=== PATIENT | female | born 1990 | race Caucasian/White ===

== ENCOUNTER 2017-05-27 08:43 | Emergency (ER) | payer BC ==
[~2017-05-27] VITALS: Ht 172.7 cm; Wt 83.2 kg
[2017-05-27 08:49] VITALS: TEMP 36.8; Ht 172.7 cm; Wt 83.2 kg
[2017-05-27] MEDS ORDERED: SODIUM CHLORIDE 0.9% 1000ML 1,000 ML IV ONE (09:03)
[2017-05-27] MEDS ORDERED: ONDANSETRON INJ 2 MG/ML 2 ML VIAL IV STA ×2 (09:03→10:32)
[2017-05-27] MEDS ORDERED: SODIUM CHLORIDE 0.9% 1000ML 1,000 ML IV STA (09:03)
[2017-05-27] MEDS ORDERED: CABE0.5T PO (09:17)
[2017-05-27] MEDS ORDERED: LEVOTHYROXINE PO (09:17)
[2017-05-27 09:23] LABS: BASO % 0.2 %; BASO ABS # 0.02 K/uL (0-0.2); COMPLETE YES; EOS % 1.1 %; HEMATOCRIT 43.5 % (37-47); IG% 0.4 %; LYMPH % 29.7 %; LYMPH ABS # 2.48 K/uL (1.2-3.4); MEAN CELL VOLUME 94.8 fL (80-100); MEAN CORPUSCULAR HEMOGLOBIN 31.8 pg (25-34); MEAN CORPUSCULAR HGB CONC 33.6 g/dl (32-36); MEAN PLATELET VOLUME 9.6 fL (7.4-10.4); MONO % 10.3 %; NEUT % 58.3 %; PLATELET COUNT 266 K/uL (130-400); RED BLOOD COUNT 4.59 M/uL (4.2-5.4); WHITE BLOOD COUNT 8.35 K/uL (4.8-10.8)
[2017-05-27 09:25] LABS: URINE APPEARANCE CLEAR (CLEAR); URINE BILIRUBIN NEG (NEG); URINE COLOR YELLOW; URINE EPITHELIAL CELL AUTO >30 /lpf (0-5); URINE NITRITE NEG (NEG); URINE SPECIFIC GRAVITY 1.028 (1.000-1.030); UROBILINOGEN NEG (NEG)
--- NOTE | 2017-05-27 09:25 | EMERGENCY ROOM VISIT NOTE ---
History Report prepared by [place]: Kavitha Harris Under the Supervision of: Dr. Mac Vogt M.D. First contact with patient: 08:53 Chief Complaint: NAUSEA Stated Complaint: NAUSEA, WEAKNESS, VOMITING, DIZZY, COLD Nursing Triage Summary: pt reports I am traveling from [place] to [place] and started feeling nauseated , with Vomitting and diarrhea starting 1 day ago, with abdominal pain History of Present Illness The patient is a 26 year old female who presents to the Emergency Room with complaints of constant nausea for the past two day. The patient is driving from [place] to [place] for work. She states that while she was driving two days ago she developed nausea with intermittent vomiting. She forced herself to eat one meal yesterday, but states that otherwise she has not been eating. She has been trying to drink water to stay hydrated, but states that she has been unable to keep much down. The patient reports some upper abdominal pain that she thinks is secondary to vomiting. She rates her pain as a 5/10 in severity. She is also feeling weak and dizzy. The patient states that she is having a hard time walking because she is just generally weak all over. She has been having hot and cold flashes and diarrhea as well. The patient denies fever, headache, urinary symptoms, abnormal vaginal bleeding or discharge, and any recent trauma. Her periods have been irregular and she is unsure if she could be or not. She states that she has done martial arts competitions in the past where she has felt similar symptoms before the each competition but states that her symptoms have never been this severe before. Source of History: patient Onset: 2 days ago Position: other (global) Symptom Intensity: 5/10 Quality: other (nausea) Timing: constant Modifying Factors (Worsening): eating, drinking Associated Symptoms: + vomiting, + abdominal pain, + diarrhea, + weakness, No fevers, No headache, No urinary symptoms Note: Pt notes dizziness and hot/cold flashes. Denies abnormal vaginal bleeding or discharge and recent trauma. Review of Systems See HPI for pertinent positives & negatives. A total of 10 systems reviewed and were otherwise negative. 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 Nurse's notes were reviewed and I agree with. Family History FHx: cancer Kidney disease Kidney stones Social History Smoking Status: Never Smoker Smokeless Tobacco Use: No Alcohol Use: occasionally Housing Status: lives alone Occupation Status: employed Current/Historical Medications Scheduled Cabergoline (Cabergoline), 1 MG PO DAILY [Levothyroxine], 1 TAB PO 2XWK Scheduled PRN Lorazepam (Ativan), 1 MG PO Q8 PRN for Anxiety/Agitation Allergies Coded Allergies: Iodine (Unverified Allergy, Unknown, HIVES, SOB, 05/27/17) Procaine (Unverified Allergy, Unknown, SHORTNESS OF BREATH, 05/27/17) Shellfish (Unverified Allergy, Unknown, HIVES, WELTS ON FACE, SOB, 05/27/17) Physical Exam Vital Signs Date Time Temp Pulse Resp B/P (MAP) Pulse Ox O2 Delivery O2 Flow Rate FiO2 05/27/17 14:38 57 17 118/58 99 05/27/17 12:12 66 16 121/67 99 Room Air 05/27/17 10:55 70 22 121/67 98 Room Air 05/27/17 08:49 36.8 83 20 113/70 99 Room Air Physical Exam General: Well developed well nourished mildly ill appearing young female in no acute distress, complaining of feeling weak and nauseated, breathing comfortably on room air. Normal speech. Alert and oriented x3, answers questions appropriately. HEENT: Normal cephalic atraumatic. Pupils are equal round and reactive to light. Extraocular movements are intact. Oropharynx is pink with moist mucous membranes. No swelling of the mouth lips or tongue. Neck: Supple with a midline trachea. No meningeal signs or stiffness, no JVD or bruits. No Stridor. Chest: Clear to auscultation bilaterally. No wheezes or rhonchi. No increased work of breathing. Heart: regular rate and rhythm. Abdomen: Soft nontender, nondistended without rebound guarding or rigidity. Extremities: No cyanosis clubbing or edema. No calf tenderness or assymetry Spine/Back. Non tender to palpation. No CVA tenderness Skin: Good turgor without rashes. Neurologic exam: Cranial nerves two through 12 are intact. Motor and sensation are intact and symmetrical throughout. Medical Decision & Procedures Laboratory Results 05/27/17 09:15 Red Blood Count 4.59, Mean Corpuscular Volume 94.8, Mean Corpuscular Hemoglobin 31.8, Mean Corpuscular Hemoglobin Concent 33.6, Mean Platelet Volume 9.6, Neutrophils (%) (Auto) 58.3, Lymphocytes (%) (Auto) 29.7, Monocytes (%) (Auto) 10.3, Eosinophils (%) (Auto) 1.1, Basophils (%) (Auto) 0.2, Neutrophils # (Auto ) 4.87, Lymphocytes # (Auto) 2.48, Monocytes # (Auto) 0.86, Eosinophils # (Auto ) 0.09, Basophils # (Auto) 0.02 05/27/17 09:15 Test 05/27/17 09:00 05/27/17 09:15 05/27/17 09:21 Urine Color YELLOW Urine Appearance CLEAR (CLEAR) Urine pH 7.0 (4.5-7.5) Urine Specific [place] 1.028 (1.000-1.030) Urine Protein NEG (NEG) Urine Glucose (UA) NEG (NEG) Urine Ketones TRACE (NEG) Urine Occult Blood NEG (NEG) Urine Nitrite NEG (NEG) Urine Bilirubin NEG (NEG) Urine Urobilinogen NEG (NEG) Urine Leukocyte Esterase SMALL (NEG) Urine WBC (Auto) 5-10 /hpf (0-5) Urine RBC (Auto) 0-4 /hpf (0-4) Urine Hyaline Casts (Auto) 5-10 /lpf (0-5) Urine Epithelial Cells (Auto) >30 /lpf (0-5) Urine Bacteria (Auto) NEG (NEG) Urine Test NEG (NEG) White Blood Count 8.35 K/uL (4.8-10.8) Red Blood Count 4.59 M/uL (4.2-5.4) Hemoglobin 14.6 g/dL (12.0-16.0) Hematocrit 43.5 % (37-47) Mean Corpuscular Volume 94.8 fL (80-100) Mean Corpuscular Hemoglobin 31.8 pg (25-34) Mean Corpuscular Hemoglobin Concent 33.6 g/dl (32-36) Platelet Count 266 K/uL (130-400) Mean Platelet Volume 9.6 fL (7.4-10.4) Neutrophils (%) (Auto) 58.3 % Lymphocytes (%) (Auto) 29.7 % Monocytes (%) (Auto) 10.3 % Eosinophils (%) (Auto) 1.1 % Basophils (%) (Auto) 0.2 % Neutrophils # (Auto) 4.87 K/uL (1.4-6.5) Lymphocytes # (Auto) 2.48 K/uL (1.2-3.4) Monocytes # (Auto) 0.86 K/uL (0.11-0.59) Eosinophils # (Auto) 0.09 K/uL (0-0.5) Basophils # (Auto) 0.02 K/uL (0-0.2) RDW Standard Deviation 45.3 fL (36.4-46.3) RDW Coefficient of Variation 13.1 % (11.5-14.5) Immature Granulocyte % (Auto) 0.4 % Immature Granulocyte # (Auto) 0.03 K/uL (0.00-0.02) Anion Gap 8.0 mmol/L (3-11) Est Creatinine Clear Calc Drug Dose 86.8 ml/min Estimated GFR () 79.7 Estimated GFR (Non- 68.8 BUN/Creatinine Ratio 11.6 (10-20) Calcium Level 11.0 mg/dl (8.5-10.1) Total Bilirubin 0.9 mg/dl (0.2-1) Direct Bilirubin 0.2 mg/dl (0-0.2) Aspartate Amino Transf (AST/SGOT) 18 U/L (15-37) Alanine Aminotransferase (ALT/SGPT) 46 U/L (12-78) Alkaline Phosphatase 64 U/L (45-117) Total Protein 8.6 gm/dl (6.4-8.2) Albumin 4.5 gm/dl (3.4-5.0) Lipase 137 U/L (73-393) Thyroid Stimulating Hormone (TSH) 1.580 uIu/ml (0.300-4.500) Bedside Troponin I < 0.030 ng/ml (0-0.045) Laboratory studies as stated above per my review. Medications Administered Medications (Trade) Dose Ordered Sig/Callie Route Start Time Stop Time Status Last Admin Dose Admin Sodium Chloride 1,000 ml @ 999 mls/hr Q1H1M STAT IV 05/27/17 09:03 05/27/17 10:03 DC 05/27/17 09:17 999 MLS/HR Sodium Chloride 1,000 ml @ 200 mls/hr Q5H ONCE IV 05/27/17 09:03 05/27/17 14:02 DC 05/27/17 10:15 200 MLS/HR Ondansetron HCl (Zofran Inj) 4 mg NOW STAT IV 05/27/17 09:03 05/27/17 09:05 DC 05/27/17 09:17 4 MG Ondansetron HCl (Zofran Inj) 4 mg NOW STAT IV 05/27/17 10:32 05/27/17 10:33 DC 05/27/17 10:52 4 MG Lorazepam (Ativan Tab) 1 mg NOW STAT SL 05/27/17 12:07 05/27/17 12:08 DC 05/27/17 12:13 1 MG Lorazepam (Ativan 1MG Home Pack) 1 homepack UD ONCE PO 05/27/17 14:00 05/27/17 14:01 DC 05/27/17 14:30 1 HOMEPACK ECG Indication: nausea Rate (beats per minute): 74 Rhythm: normal sinus Findings: no acute ischemic change, no ectopy, other (poor baseline) Comparison ECG Date: no prior available ED Course 0853: Past medical records reviewed. The patient was evaluated in room A4B, and a complete history and physical examination were performed. 0903: Zofran 4 mg IV, NSS 1000 ml @ 200 mls/hr IV, NSS 1000 ml @ 999 mls/hr IV 0929: I reevaluated the patient and she is doing well and looking better. 1031: The patient is still nauseated. 1032: Zofran 4 mg IV 1052: I reassessed the patient. She is feeling anxious. 1205: The patient is still complaining of anxiety. 1207: Ativan 1 mg SL 1358: I reassessed the patient at this time. She is feeling better and resting comfortably. I discussed the results and treatment plan with the patient. I answered all pertaining questions that she had. She expressed understanding and verbalized agreement. The patient will be discharged home. 1400: Ativan 1 mg PO homepack Medical Decision Differential diagnoses includes dehydration, infection, electrolyte or metabolic abnormality, endocrine process, . This patient comes in as described above she's been feeling anxious and has some dizziness and nausea. She looks well on exam she has a normal neurologic exam she is stable vital signs she is afebrile she is non-hypoxemic she has no shortness of breath or pleurisy. IV access established was hydrated IV normal saline. She was given Zofran 4 mg IV 2 and still felt unchanged. She was given Ativan 1 mg PO and her symptoms resolved she felt better. She feels this could be anxiety. She does have history of endocrinologic problems but her blood work looks pretty good. She's had no acute electrolyte or metabolic abnormalities. Potassium slightly low at 3.2, I encouraged her to increase dietary potassium . Calcium is mildly high at 11 although she says is about baseline for her. She has no white count or fever suggest infection. She is not anemic. She is not She has no urinary tract infection symptoms. She is in the process of driving from [place] to [place] and a friend is going a come meet her and do the driving. I did give her a small prescription for Ativan but I stressed multiple times that it can make her drowsy and do not take before drinking, driving or working and she should wait at least 8 hours before driving afterwards. I told her to use this only sparingly and only use if the symptoms get very bad. Additionally I encouraged her to follow-up with her doctor when she gets [place] and get established with somebody for further treatment and evaluation. She was encouraged to return to ER if: shortness of breath, worsening of symptoms, fever chills, any new problems concerns. She was happy the plan and discharged to home. Medication Reconcilliation Current Medication List: was personally reviewed by me Blood Pressure Screening Patient's blood pressure: Normal blood pressure Impression Primary Impression: Dizziness Additional Impression: Anxiety Scribe Attestation The scribe's documentation has been prepared under my direction and personally reviewed by me in its entirety. I confirm that the note above accurately reflects all work, treatment, procedures, and medical decision making performed by me. Departure Information Dispostion Home / Self-Care Prescriptions Lorazepam (ATIVAN) 1 Mg Tab 1 MG PO Q8 Y for Anxiety/Agitation, #10 TAB Prov: Mac Vogt M.D. 05/27/17 Referrals No Doctor, Assigned (PCP) Forms HOME CARE DOCUMENTATION FORM, IMPORTANT VISIT INFORMATION Patient Instructions My [facility] Additional Instructions Rest. Return if: Worsening of symptoms, chest pain, shortness of breath, fever or chills, any new problems or concerns For severe anxiety, may use Ativan 1 mg under the tongue every 8 hours as needed Ativan may make you drowsy do not take before drinking, driving, working Minimize Ativan use Follow-up with her doctor when you get to [place] Problem Qualifiers
[2017-05-27 09:28] LABS: MANUAL MICROSCOPIC REQUIRED? NO; REVIEW REQ? NO
[2017-05-27 09:39] LABS: BUN/CREATININE RATIO 11.6 (10-20); CREATININE 1.1 mg/dl (0.60-1.20); POTASSIUM 3.2 mmol/L (3.5-5.1)
[2017-05-27 09:50] LABS: THYROID STIMULATING HORMONE 1.58 uIu/ml (0.300-4.500)
[2017-05-27] MEDS ORDERED: LORAZEPAM 1 MG TAB SL STA (12:07)
[2017-05-27] MEDS ORDERED: ATIVAN 1MG HOMEPACK PO ONE (14:00)
[2017-05-27] MEDS ORDERED: ATV/1 PO (14:02)
[2017-05-27 14:38] VITALS: BP 118/58; PULSE 57; O2SAT 99
== END 2017-05-27 14:35 | disposition home or self-care (01) ==
LOC: C.EDB 08:46 → C.EDA 14:35
DX: R42 Dizziness and giddiness (principal); F41.9 Anxiety disorder, unspecified; E83.51 Hypocalcemia; E20.9 Hypoparathyroidism, unspecified; E31.21 Multiple endocrine neoplasia [MEN] type I